=== PATIENT | male | born 1935 | race Caucasian/White ===

== ENCOUNTER → 2016-06-08 | Outpatient (REF) | LOC: ZLAB.WCH 15:08 | DX: Z01.89 Encounter for other specified special examinations (principal) | CPT/HCPCS: G0103 ==

== ENCOUNTER → 2016-06-16 | Outpatient (REF) | LOC: ZLAB.WCH 12:16 | DX: Z01.89 Encounter for other specified special examinations (principal) | CPT/HCPCS: G0103 ==

== ENCOUNTER → 2016-12-20 | Outpatient (REF) | LOC: ZLAB.WCH 18:01 | DX: Z01.89 Encounter for other specified special examinations (principal) ==

== ENCOUNTER → 2017-03-26 | Outpatient (REF) | LOC: ZLAB.WCH 18:33 | DX: Z01.89 Encounter for other specified special examinations (principal) ==

== ENCOUNTER → 2017-04-30 | Outpatient (REF) | LOC: ZLAB.WCH 15:19 | DX: Z01.89 Encounter for other specified special examinations (principal) ==

== ENCOUNTER → 2017-07-30 | Outpatient (REF) ==
[2017-07-30 19:01] LABS: PSA-TOTAL 4.87 ng/mL (0-4)
[2017-07-30 19:59] LABS: THYROID STIMULATING HORMONE 2.26 uIU/mL (0.465-4.680)
== END ==
LOC: ZLAB.WCH 18:12
PROVIDERS: Internal Medicine
DX: Z01.89 Encounter for other specified special examinations (principal)
CPT/HCPCS: G0103

== ENCOUNTER → 2017-10-22 | Outpatient (REF) | LOC: ZLAB.WCH 14:29 | DX: Z01.89 Encounter for other specified special examinations (principal) | CPT/HCPCS: G0103 ==

== ENCOUNTER → 2018-04-07 | Outpatient (REF) | LOC: ZLAB.WCH 10:07 | DX: Z01.89 Encounter for other specified special examinations (principal) ==